=== PATIENT | male | born 1975 | race Caucasian/White ===

== ENCOUNTER 2016-07-29 07:40 | Emergency (ER) | payer BC ==
[~2016-07-29] VITALS: Ht 190.5 cm; Wt 113.6 kg
[~2016-07-29 07:40] MED LIST: (None)3.5 GM OP; ANUCORT-HC25 MG RE; AUGMENTIN875TAB PO; BUPROPION150 MG PO; GENTAMICIN15 ML/BTL OP; LISINOPRIL10 MG PO; LISINOPRIL5 MG PO; LORTAB5 OR; MEDDOSEPAK PO; NAPROSYN500 MG PO; NO HOME MEDS; NORCO1 TA1 PO; PERCOCET 5/321 COMBO PO; PERCOCET 5/325M1 TAB OR; PROZAC10 MG PO; TAMSULOSIN0.4 MG PO; ULTRAM50 M1 PO; ULTRAM50 MG OR; ZOFRAN ODT8 MG SL
[2016-07-29 08:16] LABS: HEMATOCRIT 48.7 % (39.0-50.0); HEMOGLOBIN 16.1 g/dl (14.0-18.0); IMMATURE GRANULOCYTES 0.3 % (0.0-1.0); MEAN CELL VOLUME 88.2 fL CALC (80.0-100.0); MEAN CORPUSCULAR HGB 29.2 pG CALC (26.0-32.0); MEAN CORPUSCULAR HGB CONC 33.1 g/L CALC (32.0-36.0); NEUT# 4.98 thou/uL (1.82-7.42); RED BLOOD COUNT 5.52 mill/uL (4.70-6.10); RED CELL DISTRI WIDTH 13.2 % (11.5-15.5)
[2016-07-29 08:20] LABS: URINE BILIRUBIN - DIPSTICK NEGATIVE (NEGATIVE); URINE BLOOD DIPSTICK MODERATE (NEGATIVE); URINE COLOR YELLOW; URINE GLUCOSE - DIPSTICK NEGATIVE (NEGATIVE); URINE KETONE NEGATIVE (NEGATIVE); URINE LEUK ESTERASE NEGATIVE (NEGATIVE); URINE NITRITE - DIPSTICK NEGATIVE (Negative); URINE PH 5.5 (4.5-8.0); URINE PROTEIN - DIPSTICK TRACE mg/dL (NEG-TRACE); URINE SPECIFIC GRAVITY >=1.030; URINE UROBILINOGEN - DIPSTICK 0.2 E.U./dL (0.2)
[2016-07-29 08:21] LABS: URINE CLARITY HAZY; URINE MUCUS FEW hpf (NONE-FEW)
[2016-07-29 08:30] LABS: ALBUMIN 4.5 g/dL (3.2-5.0); ALKALINE PHOSPHATASE 105 u/l (38-126); ANION GAP 18 (6-22 (CALC)); BILIRUBIN, TOTAL 0.4 mg/dL (0.0-1.4); BUN 18 mg/dL (9-20); BUN/CREATININE RATIO 19 (12-20 (CALC)); CARBON DIOXIDE 24 mmol/l (22-30); CHLORIDE 109 mmol/l (95-108); GFR > 60 ML/MIN (>=60 (CALC)); GFR FOR AFR.AMER. > 60 ML/MIN (>=60 (CALC)); GLUCOSE 129 mg/dL (75-110); LIPASE 116 u/l (23-300); POTASSIUM 4.3 mmol/l (3.5-5.1); SGOT/AST 32 u/l (17-59); SGPT/ALT 47 u/l (21-72); SODIUM 146 mmol/l (137-146); TOTAL PROTEIN 7.7 g/dL (6.3-8.2)
[2016-07-29] MEDS ORDERED: CIPROFLOXACN500 MG PO (08:59)
[2016-07-29] MEDS ORDERED: PERCOCET 5/325M1 TAB PO (08:59)
[2016-07-29] MEDS ORDERED: FLOMAX0.4 M1 PO (08:59)
[2016-07-29 09:06] VITALS: BP 183/100
== END 2016-07-29 09:10 | disposition home or self-care (01) | DRG 392 ==
LOC: ED 07:40
PROVIDERS: Emergency Medicine
DX: R10.31 Right lower quadrant pain (principal); N13.2 Hydronephrosis with renal and ureteral calculous obstruction; R11.2 Nausea with vomiting, unspecified; Z87.442 Personal history of urinary calculi

== ENCOUNTER 2016-11-03 19:03 | Emergency (ER) | payer BC ==
[~2016-11-03] VITALS: Ht 190.5 cm; Wt 134.1 kg
[~2016-11-03 19:03] MED LIST changes: +CIPROFLOXACN500 MG PO; +FLOMAX0.4 M1 PO; +PERCOCET 5/325M1 TAB PO
[2016-11-03 19:44] LABS: HEMATOCRIT 50.2 % (39.0-50.0); HEMOGLOBIN 16.4 g/dl (14.0-18.0); IMMATURE GRANULOCYTES 0.3 % (0.0-1.0); MEAN CELL VOLUME 90.3 fL CALC (80.0-100.0); MEAN CORPUSCULAR HGB 29.5 pG CALC (26.0-32.0); MEAN CORPUSCULAR HGB CONC 32.7 g/L CALC (32.0-36.0); NEUT# 10.37 thou/uL (1.82-7.42); RED BLOOD COUNT 5.56 mill/uL (4.70-6.10); RED CELL DISTRI WIDTH 13.1 % (11.5-15.5)
[2016-11-03 19:51] LABS: ALBUMIN 4.9 g/dL (3.2-5.0); ALKALINE PHOSPHATASE 111 u/l (38-126); AMYLASE 87 u/l (30-110); ANION GAP 18 (6-22 (CALC)); BILIRUBIN, TOTAL 0.4 mg/dL (0.0-1.4); BUN 14 mg/dL (9-20); BUN/CREATININE RATIO 14 (12-20 (CALC)); CALCIUM 9.3 mg/dL (8.4-10.2); CARBON DIOXIDE 25 mmol/l (22-30); CHLORIDE 105 mmol/l (95-108); GFR > 60 ML/MIN (>=60 (CALC)); GFR FOR AFR.AMER. > 60 ML/MIN (>=60 (CALC)); GLUCOSE 135 mg/dL (75-110); LIPASE 32 u/l (23-300); POTASSIUM 4.3 mmol/l (3.5-5.1); SGOT/AST 34 u/l (17-59); SGPT/ALT 58 u/l (21-72); SODIUM 144 mmol/l (137-146); TOTAL PROTEIN 8.2 g/dL (6.3-8.2)
[2016-11-03 20:36] LABS: URINE BILIRUBIN - DIPSTICK NEGATIVE (NEGATIVE); URINE BLOOD DIPSTICK LARGE (NEGATIVE); URINE CLARITY CLEAR; URINE COLOR YELLOW; URINE GLUCOSE - DIPSTICK NEGATIVE (NEGATIVE); URINE KETONE NEGATIVE (NEGATIVE); URINE LEUK ESTERASE NEGATIVE (NEGATIVE); URINE NITRITE - DIPSTICK NEGATIVE (Negative); URINE PROTEIN - DIPSTICK TRACE mg/dL (NEG-TRACE); URINE SPECIFIC GRAVITY >=1.030; URINE UROBILINOGEN - DIPSTICK 0.2 E.U./dL (0.2)
[2016-11-03 21:04] LABS: URINE BACTERIA FEW hpf; URINE MUCUS FEW hpf (NONE-FEW); URINE RBC 25-50 RBC/hpf (0-5); URINE WBC 0-2 WBC/hpf (0-5)
[2016-11-03] MEDS ORDERED: LORTAB 10-325 M1 TAB PO (21:52)
[2016-11-03 21:54] VITALS: BP 150/77
== END 2016-11-03 22:02 | disposition home or self-care (01) | DRG 694 ==
LOC: ED 19:03
PROVIDERS: Emergency Medicine
DX: N13.2 Hydronephrosis with renal and ureteral calculous obstruction (principal); N21.0 Calculus in bladder; R10.31 Right lower quadrant pain; Z87.442 Personal history of urinary calculi; R11.0 Nausea

== ENCOUNTER 2018-06-01 23:42 | Emergency (ER) | payer BC ==
[~2018-06-01] VITALS: Ht 190.5 cm; Wt 131.8 kg
[~2018-06-01 23:42] MED LIST changes: +LORTAB 10-325 M1 TAB PO
[2018-06-02 00:19] LABS: HEMOGLOBIN 15.2 g/dl (14.0-18.0); IMMATURE GRANULOCYTES 0.3 % (0.0-5.0); MEAN CELL VOLUME 89.5 fL CALC (80.0-100.0); MEAN CORPUSCULAR HGB 29.6 pG CALC (26.0-32.0); NEUT# 8.71 thou/uL (1.82-7.42); RED BLOOD COUNT 5.14 mill/uL (4.70-6.10); RED CELL DISTRI WIDTH 13.2 % (11.5-15.5)
[2018-06-02 00:28] LABS: ALBUMIN 4.2 g/dL (3.2-5.0); ALKALINE PHOSPHATASE 90 u/l (38-126); ANION GAP 14 (6-22 (CALC)); BILIRUBIN, TOTAL 0.5 mg/dL (0.0-1.4); BUN 17 mg/dL (9-20); BUN/CREATININE RATIO 19 (12-20 (CALC)); CARBON DIOXIDE 24 mmol/l (22-30); CHLORIDE 108 mmol/l (95-108); CREATININE 0.9 mg/dL (0.7-1.3); GFR > 60 ML/MIN (>=60 (CALC)); GFR FOR AFR.AMER. > 60 ML/MIN (>=60 (CALC)); POTASSIUM 4.1 mmol/l (3.5-5.1); SGOT/AST 22 u/l (17-59); SODIUM 142 mmol/l (137-146)
[2018-06-02 00:58] LABS: URINE BILIRUBIN - DIPSTICK NEGATIVE (NEGATIVE); URINE BLOOD DIPSTICK LARGE (NEGATIVE); URINE COLOR YELLOW; URINE GLUCOSE - DIPSTICK NEGATIVE (NEGATIVE); URINE KETONE NEGATIVE (NEGATIVE); URINE LEUK ESTERASE NEGATIVE (NEGATIVE); URINE NITRITE - DIPSTICK NEGATIVE (Negative); URINE PROTEIN - DIPSTICK NEGATIVE (NEG-TRACE); URINE UROBILINOGEN - DIPSTICK 0.2 E.U./dL (0.2)
[2018-06-02 01:04] LABS: URINE AMORPH SEDIMENT MANY hpf (NONE-FER); URINE RBC 50-100 RBC/hpf (0-5); URINE SQUAMOUS EPITHELIAL CELL FEW EPI/hpf (0-FEW)
[2018-06-02] MEDS ORDERED: LISINOP/HCTZ1 TA1 PO (01:13)
[2018-06-02] MEDS ORDERED: LORTAB 5/3255 MG PO (01:13)
[2018-06-02] MEDS ORDERED: TAMSULOSIN0.4 MG PO (01:13)
[2018-06-02 01:35] VITALS: BP 171/92
== END 2018-06-02 01:40 | disposition home or self-care (01) | DRG 694 ==
LOC: ED 23:42
PROVIDERS: Family Medicine
DX: N13.2 Hydronephrosis with renal and ureteral calculous obstruction (principal); I10 Essential (primary) hypertension; F17.210 Nicotine dependence, cigarettes, uncomplicated; Z87.442 Personal history of urinary calculi

== ENCOUNTER 2018-07-09 10:18 | Emergency (ER) | payer OTHER, BC ==
[~2018-07-09] VITALS: Ht 190.5 cm; Wt 130.0 kg
[~2018-07-09 10:18] MED LIST changes: +LISINOP/HCTZ1 TA1 PO; +LORTAB 5/3255 MG PO
[2018-07-09] MEDS ORDERED: TORADOL PO (12:03)
[2018-07-09] MEDS ORDERED: CATAPRES0.1 MG PO (12:03)
[2018-07-09] MEDS ORDERED: FLEXERIL PO (12:03)
[2018-07-09 12:14] VITALS: BP 161/97
== END 2018-07-09 12:27 | disposition home or self-care (01) | DRG 563 ==
LOC: ED 10:18
DX: S46.912A Strain of unspecified muscle, fascia and tendon at shoulder and upper arm level, left arm, initial encounter (principal); I10 Essential (primary) hypertension; M25.512 Pain in left shoulder; X50.0XXA Overexertion from strenuous movement or load, initial encounter; Y93.H2 Activity, gardening and landscaping; Y92.89 Other specified places as the place of occurrence of the external cause; Y99.0 Civilian activity done for income or pay

== ENCOUNTER 2019-09-25 03:15 | Observation (INO) | payer SELFPAY ==
[~2019-09-25] VITALS: Ht 190.5 cm; Wt 128.0 kg
[~2019-09-25 03:15] MED LIST changes: +CATAPRES0.1 MG PO; +FLEXERIL PO; +TORADOL PO
--- NOTE | 2019-09-25 03:20 | NUR ---
PATIENT TO ROOM 8. TRIAGE COMPLETED AT BEDSIDE.
[2019-09-25 04:04] LABS: HEMOGLOBIN 15.7 g/dl (14.0-18.0); IMMATURE GRANULOCYTES 0.4 % (0.0-5.0); MEAN CELL VOLUME 88.9 fL CALC (80.0-100.0); MEAN CORPUSCULAR HGB 29.1 pG CALC (26.0-32.0); MEAN CORPUSCULAR HGB CONC 32.7 g/dL CAL (32.0-36.0); NEUT# 5.96 thou/uL (1.82-7.42); RED BLOOD COUNT 5.4 mill/uL (4.70-6.10); RED CELL DISTRI WIDTH 13.3 % (11.5-15.5)
[2019-09-25 04:16] LABS: URINE BILIRUBIN - DIPSTICK NEGATIVE (NEGATIVE); URINE BLOOD DIPSTICK TRACE-INTACT (NEGATIVE); URINE COLOR YELLOW; URINE GLUCOSE - DIPSTICK NEGATIVE (NEGATIVE); URINE KETONE NEGATIVE (NEGATIVE); URINE LEUK ESTERASE NEGATIVE (NEGATIVE); URINE NITRITE - DIPSTICK NEGATIVE (Negative); URINE PROTEIN - DIPSTICK NEGATIVE (NEG-TRACE); URINE UROBILINOGEN - DIPSTICK 0.2 E.U./dL (0.2)
[2019-09-25 04:19] LABS: BARBITURATES NEGATIVE (NEGATIVE); COCAINE NEGATIVE (NEGATIVE); METHADONE NEGATIVE (NEGATIVE); OXCYCODONE NEGATIVE (NEGATIVE); TETRAHYDROCANNABIONOL POSITIVE (NEGATIVE); TRICYLIC ANTIDEPRESSANTS NEGATIVE (NEGATIVE)
[2019-09-25 04:23] LABS: ALBUMIN 4.4 g/dL (3.2-5.0); ALKALINE PHOSPHATASE 106 u/l (38-126); ANION GAP 11 (6-22 (CALC)); BILIRUBIN, TOTAL 0.3 mg/dL (0.0-1.4); BUN 18 mg/dL (9-20); BUN/CREATININE RATIO 18 (12-20 (CALC)); CARBON DIOXIDE 27 mmol/l (22-30); CHLORIDE 105 mmol/l (95-108); GFR > 60 ML/MIN (>=60 (CALC)); GFR FOR AFR.AMER. > 60 ML/MIN (>=60 (CALC)); INTERNATIONAL NORMALIZED RATIO 0.9 RATIO (0.7-1.3); POTASSIUM 3.6 mmol/l (3.5-5.1); PROTHROMBIN TIME 9.5 SECONDS (9.0-12.5); SGOT/AST 28 u/l (17-59); SODIUM 139 mmol/l (137-146); TOTAL PROTEIN 7.7 g/dL (6.3-8.2)
--- NOTE | 2019-09-25 04:24 | NUR ---
PATIENT RESTING QUIETLY AT THIS TIME. AWAITING LAB AND X RAY RESULTS. NO C/O PAIN OR DISCOMFT, NO S/S OF DISTRESS NOTED. RESPIRATIONS EVEN AND UNLABORED. AT BEDSIDE.
[2019-09-25 04:36] LABS: MYOGLOBIN 66 ng/mL (0 - 121)
--- NOTE | 2019-09-25 05:11 | NUR ---
patient returned from ct. AWAITING RESULTS.
--- NOTE | 2019-09-25 06:19 | NUR ---
PATIENT NOTIFIED OF ADMISSION. NO C/O PAIN OR DISCOMFORT, NO S/S OF DISTRESS NOTED.
--- NOTE | 2019-09-25 06:56 | NUR ---
REPORT GIVEN TO ADMISSION NURSE RN. PATIENT [id number]. AMBULATORY WITHOUT ASSITANCE.
--- NOTE | 2019-09-25 07:00 | NUR ---
REPORT RECEIVED FROM SHANAE LAGOS FOR TRANSPORT TO [facility]. PT RESTING COMFORTABLY IN STRETCHER AND DENIES ANY NEEDS AT THIS TIME. RESP EVEN AND UNLABORED. CALL [facility] WITHIN REACH.
--- NOTE | 2019-09-25 07:30 | NUR ---
Admission Note Report Given to: Transported by: X Wheelchair Stretcher Transported with: X Nurse Transporter X Patent IV O2 X Appeals Examiner Location: ICU X [facility] PT TO ROOM 268 IN STABLE CONDITION.
--- NOTE | 2019-09-25 07:42 | NUR ---
REPORT RECEIVED FROM YOLIS IN ED, PT ARRIVED ON UNIT VIA W/C @ [phone]. ALERT AND ORIENTED X 3, DENIES PAIN/DISCOMFORT, SETTLED IN BED, ORIENTED TO ROOM AND CALL [facility], TELE MONITOR IN PLACE, IV ABT (ZITHROMAX) INFUSING TO SITE IN RAC, ALL NEEDS ADDRESSED, WILL CONTINUE TO MONITOR.
[2019-09-25 09:13] VITALS: BP 145/76
[2019-09-25 09:48] VITALS: BP 161/87
[2019-09-25 11:03] VITALS: BP 158/84
[2019-09-25] MEDS ORDERED: AMLODIPINE BESYL5 MG PO (11:12)
[2019-09-25] MEDS ORDERED: LEVAQUIN750 MG PO ×2 (11:12)
--- NOTE | 2019-09-25 12:36 | NUR ---
MEDICAL TEAM ROUNDED, DISCUSSED PLAN OF CARE, PT STATED UNDERSTANDING.
--- NOTE | 2019-09-25 13:06 | NUR ---
Discharge instructions given. Patient verbalizes understanding of same. Discharged in good condition via Ambulatory to Home with spouse. All belongings sent with pt. PT REQUESTED TO AMBULATE OFF UNIT
== END 2019-09-25 13:00 | disposition home or self-care (01) | DRG 194 ==
LOC: ED 03:15 → ED-I 06:03 → ED 06:18 → MS2 06:19
PROVIDERS: Emergency Medicine; ADMIT Internal Medicine; ATTEND Internal Medicine
DX: J18.9 Pneumonia, unspecified organism (principal); R04.2 Hemoptysis; I10 Essential (primary) hypertension; F17.210 Nicotine dependence, cigarettes, uncomplicated; T46.5X6A Underdosing of other antihypertensive drugs, initial encounter; Z91.128 Patient's intentional underdosing of medication regimen for other reason; Z20.828 Contact with and (suspected) exposure to other viral communicable diseases
CPT/HCPCS: G0378; Q9967

== ENCOUNTER 2019-11-15 11:08 | Emergency (ER) | payer SELFPAY ==
[~2019-11-15] VITALS: Ht 188 cm; Wt 129.0 kg
[~2019-11-15 11:08] MED LIST changes: +AMLODIPINE BESYL5 MG PO; +LEVAQUIN750 MG PO
[2019-11-15 12:23] LABS: HEMATOCRIT 47.9 % (39.0-50.0); HEMOGLOBIN 15.7 g/dl (14.0-18.0); IMMATURE GRANULOCYTES 0.3 % (0.0-5.0); MEAN CELL VOLUME 88.9 fL CALC (80.0-100.0); MEAN CORPUSCULAR HGB 29.1 pG CALC (26.0-32.0); MEAN CORPUSCULAR HGB CONC 32.8 g/dL CAL (32.0-36.0); NEUT# 12.65 thou/uL (1.82-7.42); RED BLOOD COUNT 5.39 mill/uL (4.70-6.10); RED CELL DISTRI WIDTH 13.1 % (11.5-15.5)
[2019-11-15 12:24] LABS: URINE BILIRUBIN - DIPSTICK NEGATIVE (NEGATIVE); URINE BLOOD DIPSTICK LARGE (NEGATIVE); URINE COLOR YELLOW; URINE GLUCOSE - DIPSTICK NEGATIVE (NEGATIVE); URINE KETONE 15 mg/dL (NEGATIVE); URINE LEUK ESTERASE NEGATIVE (NEGATIVE); URINE NITRITE - DIPSTICK NEGATIVE (Negative); URINE PROTEIN - DIPSTICK 30 mg/dL (NEG-TRACE); URINE SPECIFIC GRAVITY >=1.030; URINE UROBILINOGEN - DIPSTICK 0.2 E.U./dL (0.2)
[2019-11-15 12:41] LABS: URINE RBC TNTC RBC/hpf (0-5); URINE SQUAMOUS EPITHELIAL CELL FEW EPI/hpf (0-FEW)
[2019-11-15 12:43] LABS: ALBUMIN 4.6 g/dL (3.2-5.0); ALKALINE PHOSPHATASE 113 u/l (38-126); ANION GAP 14 (6-22 (CALC)); BUN 19 mg/dL (9-20); BUN/CREATININE RATIO 20 (12-20 (CALC)); CARBON DIOXIDE 23 mmol/l (22-30); CHLORIDE 104 mmol/l (95-108); CREATININE 0.9 mg/dL (0.7-1.3); GFR > 60 ML/MIN (>=60 (CALC)); GFR FOR AFR.AMER. > 60 ML/MIN (>=60 (CALC)); POTASSIUM 4.1 mmol/l (3.5-5.1); SGOT/AST 24 u/l (17-59); SODIUM 137 mmol/l (137-146); TOTAL PROTEIN 7.4 g/dL (6.3-8.2)
[2019-11-15 12:45] LABS: BILIRUBIN, TOTAL 0.5 mg/dL (0.0-1.4)
[2019-11-15] MEDS ORDERED: INDERAL LA60 MG PO (12:52)
[2019-11-15] MEDS ORDERED: LEXAPRO10 MG PO (12:53)
[2019-11-15] MEDS ORDERED: TAMSULOSIN0.4 MG PO (12:56)
[2019-11-15] MEDS ORDERED: ZOFRAN4 MG/TAB PO (12:56)
[2019-11-15] MEDS ORDERED: CIPROFLOXACN500 MG PO (12:56)
[2019-11-15] MEDS ORDERED: PERCOCET 5/325M1 TAB PO (12:56)
[2019-11-15 13:06] VITALS: BP 165/75
== END 2019-11-15 13:27 | disposition home or self-care (01) | DRG 694 ==
LOC: ED 11:08
DX: N13.2 Hydronephrosis with renal and ureteral calculous obstruction (principal); I10 Essential (primary) hypertension; F17.200 Nicotine dependence, unspecified, uncomplicated; Z87.442 Personal history of urinary calculi

== ENCOUNTER 2020-09-28 10:19 | Emergency (ER) | payer OTHER ==
[~2020-09-28] VITALS: Ht 188 cm; Wt 100.0 kg
[~2020-09-28 10:19] MED LIST changes: +INDERAL LA60 MG PO; +LEXAPRO10 MG PO; +ZOFRAN4 MG/TAB PO
[2020-09-28] MEDS ORDERED: MELOXICAM7.5 MG PO (11:37)
[2020-09-28] MEDS ORDERED: BUPROPN HCL300 MG PO (11:38)
[2020-09-28] MEDS ORDERED: TOBREX OPTH5 ML/BTL OD (12:31)
[2020-09-28 12:35] VITALS: BP 150/75
== END 2020-09-28 12:41 | disposition home or self-care (01) | DRG 918 ==
LOC: ED 10:19
DX: T65.891A Toxic effect of other specified substances, accidental (unintentional), initial encounter (principal); H10.211 Acute toxic conjunctivitis, right eye; I10 Essential (primary) hypertension; F17.200 Nicotine dependence, unspecified, uncomplicated; Y92.89 Other specified places as the place of occurrence of the external cause; Y99.0 Civilian activity done for income or pay

== ENCOUNTER 2022-03-04 11:32 | Emergency (ER) | payer OTHER ==
[~2022-03-04] VITALS: Ht 188 cm; Wt 132.9 kg
[~2022-03-04 11:32] MED LIST changes: +BUPROPN HCL300 MG PO; +MELOXICAM7.5 MG PO; +TOBREX OPTH5 ML/BTL OD
[2022-03-04 12:06] VITALS: BP 132/83
[2022-03-04 14:59] VITALS: BP 132/83
== END 2022-03-04 15:03 | disposition home or self-care (01) | DRG 914 ==
LOC: ED 11:32
DX: S69.92XA Unspecified injury of left wrist, hand and finger(s), initial encounter (principal); W20.8XXA Other cause of strike by thrown, projected or falling object, initial encounter; M25.532 Pain in left wrist

== ENCOUNTER 2022-10-10 15:35 | Emergency (ER) | payer OTHER ==
[~2022-10-10] VITALS: Ht 188 cm; Wt 136.0 kg
[2022-10-10 16:01] VITALS: BP 141/88
[2022-10-10 16:41] LABS: BASO% 0.4 % (0-3); EOS% 2.5 % (0-8); HEMATOCRIT 46.9 % (39.0-50.0); HEMOGLOBIN 14.8 g/dl (14.0-18.0); IMMATURE GRANULOCYTES 0.2 % (0.0-5.0); LYMPH% 22.2 % (15-41); MEAN CELL VOLUME 91.8 fL CALC (80.0-100.0); MEAN CORPUSCULAR HGB CONC 31.6 g/dL CAL (32.0-36.0); MONO% 6.7 % (2-13); NEUT# 6.94 thou/uL (1.82-7.42); RED BLOOD COUNT 5.11 mill/uL (4.70-6.10); RED CELL DISTRI WIDTH 13.1 % (11.5-15.5)
[2022-10-10 16:45] LABS: ALBUMIN 4.5 g/dL (3.2-5.0); ALKALINE PHOSPHATASE 73 u/l (38-126); ANION GAP 11 (6-22 (CALC)); BILIRUBIN, TOTAL 0.2 mg/dL (0.2-1.3); BUN 17 mg/dL (9-20); BUN/CREATININE RATIO 18 (12-20 (CALC)); CARBON DIOXIDE 29 mmol/l (22-30); CHLORIDE 105 mmol/l (95-108); CREATININE 0.9 mg/dL (0.7-1.3); GFR FOR AFR.AMER. > 60 ML/MIN (>=60 (CALC)); GFR OTHER RACES > 60 ML/MIN (>=60 (CALC)); LIPASE 39 u/l (23-300); POTASSIUM 4.1 mmol/l (3.5-5.1); SGOT/AST 30 u/l (17-59); SODIUM 141 mmol/l (137-146); TOTAL PROTEIN 7.6 g/dL (6.3-8.2)
[2022-10-10] MEDS ORDERED: ZOFRAN4 MG/TAB PO (17:19)
[2022-10-10] MEDS ORDERED: ZPAK PO (17:19)
[2022-10-10 18:04] VITALS: BP 131/76
== END 2022-10-10 18:19 | disposition home or self-care (01) | DRG 153 ==
LOC: ED 15:35
PROVIDERS: Family Medicine
DX: J06.9 Acute upper respiratory infection, unspecified (principal); I10 Essential (primary) hypertension; R73.03 Prediabetes; F17.210 Nicotine dependence, cigarettes, uncomplicated; Z20.822 Contact with and (suspected) exposure to COVID-19

== ENCOUNTER 2022-12-12 10:58 | Emergency (ER) | payer OTHER ==
[~2022-12-12] VITALS: Ht 188 cm; Wt 107.0 kg
[2022-12-12] VITALS (13 sets, daily range): BP systolic 114–146; BP diastolic 64–92
[~2022-12-12 10:58] MED LIST changes: +ZPAK PO
[2022-12-12] MEDS ORDERED: LISINOPRIL5 MG PO (11:23)
[2022-12-12] MEDS ORDERED: METOPROLOL TAR100 MG PO (11:23)
[2022-12-12] MEDS ORDERED: ESCITALOPRAM OX20 MG PO (11:25)
[2022-12-12] MEDS ORDERED: AMLODIPINE BESY10 MG PO (11:25)
[2022-12-12] MEDS ORDERED: ALPRAZOLAM0.5 M2 PO (11:26)
[2022-12-12] MEDS ORDERED: CYCLOBENZAPRINE10 MG PO (11:27)
[2022-12-12 11:35] LABS: BASO% 0.3 % (0-3); EOS% 2.5 % (0-8); HEMATOCRIT 49.9 % (39.0-50.0); HEMOGLOBIN 15.9 g/dl (14.0-18.0); IMMATURE GRANULOCYTES 0.5 % (0.0-5.0); LYMPH% 27.4 % (15-41); MEAN CELL VOLUME 90.7 fL CALC (80.0-100.0); MEAN CORPUSCULAR HGB 28.9 pG CALC (26.0-32.0); MEAN CORPUSCULAR HGB CONC 31.9 g/dL CAL (32.0-36.0); MONO% 4.9 % (2-13); NEUT# 5.6 thou/uL (1.82-7.42); NEUT% 64.4 % (42-76); RED BLOOD COUNT 5.5 mill/uL (4.70-6.10); RED CELL DISTRI WIDTH 13.2 % (11.5-15.5)
[2022-12-12 12:02] LABS: ALBUMIN 4.4 g/dL (3.2-5.0); ALKALINE PHOSPHATASE 98 u/l (38-126); ANION GAP 13 (6-22 (CALC)); BUN 15 mg/dL (9-20); BUN/CREATININE RATIO 14 (12-20 (CALC)); CARBON DIOXIDE 27 mmol/l (22-30); CHLORIDE 106 mmol/l (95-108); CREATININE 1.1 mg/dL (0.7-1.3); GFR FOR AFR.AMER. > 60 ML/MIN (>=60 (CALC)); GFR OTHER RACES > 60 ML/MIN (>=60 (CALC)); POTASSIUM 4.3 mmol/l (3.5-5.1); SGOT/AST 45 u/l (17-59); SODIUM 141 mmol/l (137-146)
[2022-12-12 12:09] LABS: URINE COLOR DK. YELLOW
[2022-12-12 12:10] LABS: URINE BILIRUBIN - DIPSTICK NEGATIVE (NEGATIVE); URINE BLOOD DIPSTICK NEGATIVE (NEGATIVE); URINE GLUCOSE - DIPSTICK NEGATIVE (NEGATIVE); URINE KETONE Trace mg/dL (NEGATIVE); URINE LEUK ESTERASE NEGATIVE (NEGATIVE); URINE NITRITE - DIPSTICK NEGATIVE (Negative); URINE PROTEIN - DIPSTICK Trace mg/dL (NEG-TRACE); URINE SPECIFIC GRAVITY >=1.030; URINE UROBILINOGEN - DIPSTICK 0.2 E.U./dL (0.2)
[2022-12-12 12:28] LABS: BILIRUBIN, TOTAL 0.5 mg/dL (0.2-1.3)
[2022-12-12] MEDS ORDERED: HYDROCO/APAP1 TA9 PO (13:28)
[2022-12-12] MEDS ORDERED: ZOFRAN4 MG/TAB PO (13:28)
[2022-12-12] MEDS ORDERED: TAMSULOSIN0.4 MG PO (13:28)
[2022-12-12] MEDS ORDERED: OMNI-PAC300 MG PO (13:28)
== END 2022-12-12 14:15 | disposition home or self-care (01) | DRG 690 ==
LOC: ED 10:58
PROVIDERS: Family Medicine
DX: N30.90 Cystitis, unspecified without hematuria (principal); I10 Essential (primary) hypertension; E11.9 Type 2 diabetes mellitus without complications; F17.210 Nicotine dependence, cigarettes, uncomplicated; Z87.442 Personal history of urinary calculi